=== PATIENT | male | born 1990 | race Caucasian/White ===

== ENCOUNTER 2018-02-07 19:52 | Emergency (ER) | payer OTHER ==
[2018-02-07] MEDS ORDERED: NS 1,000 ML IV ONE (19:59)
--- NOTE | 2018-02-07 20:01 | EDPHY ---
H & P Time Seen by Provider: 02/07/18 19:55 HPI/ROS: CHIEF COMPLAINT: Syncope HISTORY OF PRESENT ILLNESS: The patient is a 27-year-old man who had a syncopal event this evening. He was sitting at a restaurant when he stood up to go the bathroom. Soon after standing up he fainted in the hallway. He did not have any seizure-like activity. He was only unconscious for a few seconds. He was not postictal. No incontinence. No tongue biting. He states the knee now feels normal. He denies having any chest pain or palpitations at the time. He is not on any medications. He denies any significant past medical history. He has never done this before. He did have a little marijuana earlier today but denies any other drugs or alcohol. REVIEW OF SYSTEMS: Constitutional: denies: chills, fever, recent illness, recent injury EENTM: denies: blurred vision, double vision, nose congestion Respiratory: denies: cough, shortness of breath Cardiac: See HPI denies: chest pain, irregular heart rate, palpitations Gastrointestinal/Abdominal: denies: abdominal pain, diarrhea, nausea, vomiting, blood streaked stools Genitourinary: denies: dysuria, frequency, hematuria, pain Musculoskeletal: denies: joint pain, muscle pain Skin: denies: lesions, rash, jaundice, bruising Neurological: denies: headache, numbness, paresthesia, tingling, dizziness, weakness Hematologic/Lymphatic: denies: blood clots, easy bleeding, easy bruising Immunologic/allergic: denies: HIV/AIDS, transplant EXAM: GENERAL: Well-appearing, well-nourished and in no acute distress. HEAD: Atraumatic, normocephalic. EYES: Pupils equal round and reactive to light, extraocular movements intact, sclera anicteric, conjunctiva are normal. ENT: TMs normal, nares patent, oropharynx clear without exudates. Moist mucous membranes. NECK: Normal range of motion, supple without lymphadenopathy or JVD. LUNGS: Breath sounds clear to auscultation bilaterally and equal. No wheezes rales or rhonchi. HEART: Regular rate and rhythm without murmurs, rubs or gallops. ABDOMEN: Soft, nontender, normoactive bowel sounds. No guarding, no rebound. No masses appreciated. BACK: No CVA tenderness, no spinal tenderness, step-offs or deformities EXTREMITIES: Normal range of motion, no pitting or edema. No clubbing or cyanosis. NEUROLOGICAL: Cranial nerves II through XII grossly intact. Normal speech, normal gait. 5/5 strength, normal movement in all extremities, normal sensation PSYCH: Normal mood, normal affect. SKIN: Warm, dry, normal turgor, no visible rashes or lesions. Source: Patient Exam Limitations: No limitations - Medical/Surgical History Hx Asthma: No Hx Chronic Respiratory Disease: No Hx Diabetes: No Hx Cardiac Disease: No Hx Renal Disease: No Hx Cirrhosis: No Hx Alcoholism: No Hx HIV/AIDS: No - Family History Significant Family History: No pertinent family hx - Social History Alcohol Use: Sober Drug Use: Marijuana Constitutional: Initial Vital Signs Temperature (C) 36.3 C 02/07/18 20:00 Heart Rate 82 02/07/18 20:00 Respiratory Rate 18 02/07/18 20:00 Blood Pressure 122/93 H 02/07/18 20:00 O2 Sat (%) 95 02/07/18 20:00 O2 Delivery Mode Room Air Allergies/Adverse Reactions: penicillin G Allergy (Mild, Verified 02/07/18 19:57) Home Medications: Medication Instructions Recorded NK [No Known Home Meds] 02/07/18 Medical Decision Making - Diagnostics EKG Interpretation: An EKG obtained and was read and documented in trace view. Please see trace view for full reading and report. Sinus rhythm, no acute ischemic changes, no interval abnormalities ED Course/Re-evaluation: 9:00 p.m. the patient is asymptomatic. His lab work is reassuring. He is eager to go home we discussed follow-up as well as indications for returning. We discussed continued workup and monitoring. Differential Diagnosis: Partial list of the Differential diagnosis considered include but were not limited to; syncope, seizure, hypoglycemia, electrolyte abnormality and although unlikely based on the history and physical exam, I also considered hemorrhage, infection. I discussed these differential diagnoses and the plan with the patient as well as the usual and expected course. The patient understands that the diagnosis is provisional and that in medicine we are not always correct and that further workup is often warranted. Usual and customary warnings were given. All of the patient's questions were answered. The patient was instructed to return to the emergency department should the symptoms at all worsen or return, otherwise to followup with the physician as we discussed. - Data Points Laboratory Results: Laboratory Results 02/07/18 19:52 02/07/18 19:52 Medications Given: Discontinued Medications Sodium Chloride (Ns) 1,000 mls @ 0 mls/hr IV EDNOW ONE; Wide Open PRN Reason: Protocol Stop: 02/07/18 20:00 Last Admin: 02/07/18 20:08 Dose: 1,000 mls Departure - Departure Disposition: Home, Routine, Self-Care Clinical Impression: Syncope and collapse Condition: Good Instructions: Syncope (ED) Referrals: Patient,NotPresent [Unknown] - As per Instructions Andrea Alcantar MD [Medical Doctor] - 2-3 days, call for appt. Reji Hampton MD [Medical Doctor] - 2-3 days, if not improved
--- NOTE | 2018-02-07 20:12 | CPEKG ---
Heart Rate: 83 RR Interval: 723 P-R Interval: 160 QRSD Interval: 104 QT Interval: 388 QTC Interval: 456 P [place]: 57 QRS [place]: 5 T Wave [place]: 32 EKG Severity - NORMAL ECG - EKG Impression: SINUS RHYTHM Electronically Signed By: Damian Ruvalcaba 07-Feb-2018 21:00:00
[2018-02-07 20:17] LABS: PLATELET COUNT 471 10^3/uL (150-400)
[2018-02-07 21:15] VITALS: BP 120/76
== END 2018-02-07 21:17 | disposition home or self-care (01) ==
DX: R55 Syncope and collapse (principal); E86.9 Volume depletion, unspecified